=== PATIENT | female | born 1975 | race African-American/Black ===

== ENCOUNTER 2020-08-01 09:10 | Emergency (ER) | payer SELFPAY ==
[~2020-08-01] VITALS: Ht 167.6 cm; Wt 95.5 kg
[2020-08-01 09:20] VITALS: BP 146/92; TEMP 98.4
[2020-08-01 09:42] LABS: COLLECTION METHOD CLEAN CATCH
[2020-08-01 09:50] LABS: MUCOUS Present /lpf; PH 7 (5-8); SQUAMOUS EPITHELIAL None Seen /hpf; URINE APPEARANCE Clear; URINE BACTERIA Rare /hpf; URINE BILIRUBIN Negative (NEGATIVE); URINE BLOOD 2+ (NEGATIVE); URINE COLOR Yellow; URINE GLUCOSE Negative (NEGATIVE); URINE KETONE Negative (NEGATIVE); URINE LEUKOCYTE ESTERASE 1+ (NEGATIVE); URINE NITRATE Negative (NEGATIVE); URINE PROTEIN(semi-quant) Negative (NEGATIVE); URINE UROBILINOGEN Negative (NEGATIVE)
[2020-08-01] MEDS ORDERED: PYRIDIUM200 M1 PO (10:01)
[2020-08-01] MEDS ORDERED: MACROBID 1100 MG/CAP PO (10:01)
[2020-08-01] MEDS ORDERED: DIFLUCAN150 MG PO (10:16)
[2020-08-01 10:20] VITALS: PULSE 78
== END 2020-08-01 10:20 | disposition home or self-care (01) ==
LOC: COL.ER 09:10
PROVIDERS: Emergency Medicine
DX: N39.0 Urinary tract infection, site not specified (principal); Z88.0 Allergy status to penicillin; Z88.1 Allergy status to other antibiotic agents

== ENCOUNTER 2020-08-29 17:56 | Emergency (ER) | payer SELFPAY ==
[~2020-08-29] VITALS: Ht 167.6 cm; Wt 95.5 kg
[~2020-08-29 17:56] MED LIST: DIFLUCAN150 MG PO; MACROBID 1100 MG/CAP PO; PYRIDIUM200 M1 PO
[2020-08-29 18:47] LABS: COLLECTION METHOD CLEAN CATCH
[2020-08-29 18:56] LABS: MUCOUS Present /lpf; PH 8 (5-8); SQUAMOUS EPITHELIAL 0-2 /hpf; URINE APPEARANCE Cloudy; URINE BACTERIA None Seen /hpf; URINE BILIRUBIN Negative (NEGATIVE); URINE BLOOD 3+ (NEGATIVE); URINE COLOR Yellow; URINE GLUCOSE Negative (NEGATIVE); URINE KETONE Negative (NEGATIVE); URINE LEUKOCYTE ESTERASE 2+ (NEGATIVE); URINE NITRATE Negative (NEGATIVE); URINE PROTEIN(semi-quant) 2+ (NEGATIVE); URINE RBC >50 /hpf; URINE UROBILINOGEN >=4.0 mg/dL (NEGATIVE)
[2020-08-29 19:50] LABS: BASO # 0.1 (0.0-0.2); BASO % 0.8 % (0.0-2.0); EOS # 0.1 (0.0-0.7); EOS % 0.6 % (0-4.0); GRAN # 5.6 (1.4-6.5); GRAN % 60.7 % (42.2-75.2); HEMATOCRIT 41.2 % (37.0-47.0); LYMPH # 3.1 (1.2-3.4); LYMPH % 33.3 % (20.0-51.0); MEAN CELL VOLUME 91 fl (80.0-100.0); MEAN CORPUSCULAR HEMOGLOBIN 29 pg (27.0-31.0); MEAN CORPUSCULAR HGB CONC 32 g/dl (33.0-37.0); MEAN PLATELET VOLUME 9.3 fl (7.4-10.4); MONO # 0.4 (0.1-0.6); MONO % 4.4 % (1.7-9.3); PLATELET COUNT 342 K/mm3 (130-400); RED BLOOD COUNT 4.52 M/mm3 (4.10-5.30); REDCELL DISTRIBUTION WIDTH-CV 13.6 % (11.5-14.5)
[2020-08-29 20:03] LABS: ALBUMIN 4.5 gm/dL (3.5-5.0); BILIRUBIN,TOTAL 0.2 mg/dL (0.0-1.0); C-REACTIVE PROTEIN 1.3 mg/dL (0.0-0.9); CALCIUM 9.7 mg/dL (8.4-10.2); CREATININE, serum 0.74 (0.52-1.25); POTASSIUM 4.1 mmol/L (3.4-5.0); TOTAL PROTEIN 8.6 gm/dL (6.4-8.2)
[2020-08-29] MEDS ORDERED: CEFTIN 250250 MG/TAB PO (22:08)
[2020-08-29] MEDS ORDERED: NORCO 325 MG-51 TAB PO (22:08)
[2020-08-29] MEDS ORDERED: DIFLUCAN150 MG PO (22:13)
[2020-08-29 22:49] VITALS: BP 148/67; PULSE 80; TEMP 97.9
== END 2020-08-29 22:22 | disposition home or self-care (01) ==
LOC: COL.ER 17:56
PROVIDERS: Emergency Medicine; Nurse Practitioner
DX: N39.0 Urinary tract infection, site not specified (principal); Z88.0 Allergy status to penicillin; Z88.1 Allergy status to other antibiotic agents; Z90.711 Acquired absence of uterus with remaining cervical stump
CPT/HCPCS: J0696; J2405; J3010; J7030; Q9967